=== PATIENT | female | born 2000 | race Caucasian/White ===

== ENCOUNTER 2022-10-17 20:55 | Emergency (ER) | payer MEDICAID ==
[~2022-10-17] VITALS: Ht 157.5 cm; Wt 99.8 kg
[2022-10-17 21:10] VITALS: BP_SYST 140
[2022-10-17] MEDS ORDERED: PRED20TA PO (23:14)
[2022-10-17] MEDS ORDERED: IBUP-1971 PO (23:14)
[2022-10-17] MEDS ORDERED: PENICILLIN G BENZATHINE 1.2 MMU/2 ML SYR IM ONE (23:15)
[2022-10-17] MEDS ORDERED: KETOROLAC TROMETHAMINE 60 MG/2 ML VIAL IM ONE (23:15)
[2022-10-17 23:47] VITALS: BP_SYST 140
== END 2022-10-17 23:47 | disposition home or self-care (01) ==
LOC: SED 20:55
DX: A49.1 Streptococcal infection, unspecified site (principal); R50.9 Fever, unspecified; J02.9 Acute pharyngitis, unspecified; Z91.013 Allergy to seafood; Z79.899 Other long term (current) drug therapy
CPT/HCPCS: 99284; 81025; 96372; J0561; J1885

== ENCOUNTER 2023-10-03 18:23 | Emergency (ER) | payer MEDICAID ==
[~2023-10-03] VITALS: Ht 154.9 cm; Wt 99.8 kg
[~2023-10-03 18:23] MED LIST: IBUP-1971 PO; PRED20TA PO
[2023-10-03 18:26] VITALS: BP_SYST 132; PULSE 83; RESP 20; TEMP 98.3; O2SAT 100
[2023-10-03] MEDS ORDERED: IBUP-1969 PO (20:12)
[2023-10-03] MEDS: IBUPROFEN 800 MG TABLET PO ONE (20:15)
[2023-10-03 21:08] VITALS: BP_SYST 110; PULSE 83; RESP 18; TEMP 98.1; O2SAT 98
== END 2023-10-03 21:08 | disposition home or self-care (01) ==
LOC: SED 18:23
DX: N94.6 Dysmenorrhea, unspecified (principal); Z91.013 Allergy to seafood; Z79.899 Other long term (current) drug therapy
CPT/HCPCS: 99284